=== PATIENT | male | born 1985 | race Caucasian/White ===

== ENCOUNTER 2018-01-28 17:25 | Observation (INO) | payer OTHER ==
[~2018-01-28] VITALS: Ht 182.9 cm; Wt 104.5 kg
[2018-01-28 17:29] VITALS: BP 160/91; PULSE 92; RESP 18; TEMP 98.6; O2SAT 99
[2018-01-28 17:41] VITALS: BP 159/104; PULSE 94; RESP 18; O2SAT 98
--- NOTE | 2018-01-28 17:44 | PD ---
HPI Chief Complaint: Chest Pain Time Seen by Provider: 17:43 Travel History International Travel<30 days: No Contact w/Intl Traveler<30days: No Traveled to known affect area: No History of Present Illness HPI 32-year-old male came to the emergency room with history of substernal chest tightness that has been going on since yesterday. It has been continuous. No aggravating or relieving factors identified. No radiation of pain. Patient was concerned since it did not get better and hence decided to come in. Vital signs are stable. He has history of hypertension and has been noncompliant with his medications as per him. He is not a smoker. Has never had these symptoms in the past. Never had a coronary artery disease workup. His grandfather had VA at the age of 40s. Patient was concerned from cardiac standpoint and hence came to the emergency room. No history of DVT or PE. [facility] Past Medical History Narrative Medical List of his past medical, surgical, social and family history is reviewed from the nursing note. Social History Tobacco Use: No Allergies-Medications (Allergen,Severity, Reaction): Coded Allergies: No Known Allergies (Unverified , 01/28/18) Comments No known drug allergies. Reported Meds & Prescriptions Reported Meds & Active Scripts Active Reported Naproxen 250 Mg Tab 250 Mg PO BID Voltaren (Diclofenac Sodium) 1 % Gel..gram. Omeprazole 20 Mg Tab 20 Mg PO DAILY Wellbutrin SR 12 HR (Bupropion HCl) 100 Mg Tab 100 Mg PO Q12HR Diltiazem CD 24 HR 120 Mg Caper 120 Mg PO DAILY Narrative Medication List of his home medications reviewed from the nursing note. Review of Systems Except as stated in HPI: all other systems reviewed are Neg Cardiovascular: Positive: Chest Pain or Discomfort Physical Exam Narrative GENERAL: Awake, alert, no obvious distress SKIN: Focused skin assessment warm/dry. Patient has a lump on the back of his neck at C7-T1 area. This is nontender and the overlying skin appears to be normal. HEAD: Atraumatic. Normocephalic. EYES: Pupils equal and round. No scleral icterus. No injection or drainage. ENT: No nasal bleeding or discharge. Mucous membranes pink and moist. NECK: Trachea midline. No JVD. CARDIOVASCULAR: Regular rate and rhythm. No murmur appreciated. RESPIRATORY: No accessory muscle use. Clear to auscultation. Breath sounds equal bilaterally. GASTROINTESTINAL: Abdomen soft, non-tender, nondistended. Hepatic and splenic margins not palpable. MUSCULOSKELETAL: No obvious deformities. No clubbing. No cyanosis. No edema. NEUROLOGICAL: Awake and alert. No obvious cranial nerve deficits. Motor grossly within normal limits. Normal speech. PSYCHIATRIC: Appropriate mood and affect; insight and judgment normal. Data Data Last Documented VS Vital Signs Date Time Temp Pulse Resp B/P (MAP) Pulse Ox O2 Delivery O2 Flow Rate FiO2 01/28/18 17:41 94 18 159/104 (122) 98 Room Air 01/28/18 17:29 98.6 Orders Orders Basic Metabolic Panel (Bmp) (01/28/18 18:10) Complete Blood Count With Diff (01/28/18 18:10) Magnesium (Mg) (01/28/18 18:10) Prothrombin Time / Inr (Pt) (01/28/18 18:10) Troponin I (01/28/18 18:10) Chest, Single Ap (01/28/18 18:10) Ecg Monitoring (01/28/18 18:10) Bilateral Bp Monitoring (01/28/18 18:10) Iv Access Insert/Monitor (01/28/18 18:10) Oximetry (01/28/18 18:10) Oxygen Administration (01/28/18 18:10) Aspirin Chew (Aspirin Chew) (01/28/18 18:15) Sodium Chloride 0.9% Flush (Ns Flush) (01/28/18 18:15) Admit Order (Ed Use Only) (01/28/18 18:54) Place In Observation (01/28/18 18:54) Activity Bed Rest With Brp (01/28/18 18:54) Vital Signs (Adult) Q4H (01/28/18 18:54) Cardiac Rhythm .As Directed (01/28/18 18:54) Notify Dr: Other .PRN (01/28/18 18:54) Notify Parameters (01/28/18 18:54) Resp Oxygen Nasal Cannula (01/28/18 ) Diet Heart Healthy (01/28/18 Dinner) Ckmb (Isoenzyme) Profile (01/28/18 18:54) Ckmb (Isoenzyme) Profile (01/28/18 21:54) Troponin I (01/28/18 18:54) Troponin I (01/28/18 21:54) Electrocardiogram (01/28/18 18:54) Electrocardiogram (01/28/18 21:54) ^ Obtain (01/28/18 18:54) Sodium Chloride 0.9% Flush (Ns Flush) (01/28/18 19:00) Sodium Chloride 0.9% Flush (Ns Flush) (01/28/18 21:00) Acetaminophen (Tylenol) (01/28/18 19:00) Ondansetron Inj (Zofran Inj) (01/28/18 19:00) Clinical Specialist Vascular / Telemetry LIA.Q8H (01/28/18 18:54) Labs Laboratory Tests Test 01/28/18 18:15 White Blood Count 10.1 TH/MM3 Red Blood Count 5.64 MIL/MM3 Hemoglobin 16.7 GM/DL Hematocrit 47.7 % Mean Corpuscular Volume 84.5 FL Mean Corpuscular Hemoglobin 29.6 PG Mean Corpuscular Hemoglobin Concent 35.0 % Red Cell Distribution Width 13.9 % Platelet Count 220 TH/MM3 Mean Platelet Volume 8.4 FL Neutrophils (%) (Auto) 67.6 % Lymphocytes (%) (Auto) 21.5 % Monocytes (%) (Auto) 7.5 % Eosinophils (%) (Auto) 2.7 % Basophils (%) (Auto) 0.7 % Neutrophils # (Auto) 6.9 TH/MM3 Lymphocytes # (Auto) 2.2 TH/MM3 Monocytes # (Auto) 0.8 TH/MM3 Eosinophils # (Auto) 0.3 TH/MM3 Basophils # (Auto) 0.1 TH/MM3 CBC Comment DIFF FINAL Differential Comment Prothrombin Time 10.7 SEC Prothromb Time International Ratio 1.1 RATIO Blood Urea Nitrogen 10 MG/DL Creatinine 1.08 MG/DL Random Glucose 93 MG/DL Calcium Level 9.1 MG/DL Magnesium Level 1.7 MG/DL Sodium Level 138 MEQ/L Potassium Level 4.0 MEQ/L Chloride Level 102 MEQ/L Carbon Dioxide Level 29.9 MEQ/L Anion Gap 6 MEQ/L Estimat Glomerular Filtration Rate 80 ML/MIN Troponin I LESS THAN 0.02 NG/ML MDM Medical Decision Making Medical Screen Exam Complete: Yes Emergency Medical Condition: Yes Medical Record Reviewed: Yes Interpretation(s) Twelve-lead EKG was reviewed by me. Normal sinus rhythm, normal axis, nonspecific ST-T wave changes. Heart rate of 90 bpm. Differential Diagnosis ACS, non-STEMI, nonspecific chest Narrative Course 6:23 PM awaiting for blood test result. Patient has been given 2 baby aspirins. Given his couple risk factors I have decided to admit him to the chest pain center if all the test results are negative to rule out ACS. Procedures EKG Prior to Arrival: No Diagnosis Primary Impression: Chest pain Qualified Codes: R07.9 - Chest pain, unspecified Admitting Information Admitting Physician Requests: Observation Anusha Cao MD Jan 28, 2018 17:44
[2018-01-28] MEDS ORDERED: DILT120C50 PO (17:48)
[2018-01-28] MEDS ORDERED: NAPR250T4 PO (17:48)
[2018-01-28] MEDS ORDERED: VOLT1GEL16 (17:48)
[2018-01-28] MEDS ORDERED: BUPR100CR PO (17:48)
[2018-01-28] MEDS ORDERED: OMEP20TA93 PO (17:48)
[2018-01-28] MEDS ORDERED: ASPIRIN 81 MG CHEW TAB PO ONE (18:15)
[2018-01-28] MEDS ORDERED: SODIUM CHLORIDE 0.9% FLUSH 10 ML FLUSH IVF PRN (18:15)
[2018-01-28 18:36] LABS: AUTOMATED NEUTROPHIL # 6.9 TH/MM3 (1.8-7.7); BASOPHIL # 0.1 TH/MM3 (0-0.2); BASOPHIL % 0.7 % (0.0-2.0); EOSINOPHIL # 0.3 TH/MM3 (0-0.4); EOSINOPHIL % 2.7 % (0.0-4.0); HEMATOCRIT 47.7 % (39.0-51.0); HEMOGLOBIN 16.7 GM/DL (13.0-17.0); LYMPH % 21.5 % (9.0-44.0); LYMPHOCYTE # 2.2 TH/MM3 (1.0-4.8); MEAN CELL VOLUME 84.5 FL (80.0-100.0); MEAN CORPUSCULAR HEMOGLOBIN 29.6 PG (27.0-34.0); MEAN PLATELET VOLUME 8.4 FL (7.0-11.0); MONO % 7.5 % (0.0-8.0); MONOCYTE # 0.8 TH/MM3 (0-0.9); NEUT % 67.6 % (16.0-70.0); PLATELET COUNT 220 TH/MM3 (150-450); RED BLOOD COUNT 5.64 MIL/MM3 (4.50-5.90); RED CELL DISTRIBUTION WIDTH 13.9 % (11.6-17.2); WHITE BLOOD COUNT 10.1 TH/MM3 (4.0-11.0)
[2018-01-28 18:46] LABS: INTERNATIONAL NORMALIZED RATIO 1.1 RATIO; PROTHROMBIN TIME - PATIENT 10.7 SEC (9.8-11.6)
[2018-01-28 18:49] LABS: TROPONIN I LESS THAN 0.02 NG/ML (0.02-0.05)
[2018-01-28 18:51] LABS: BICARBONATE 29.9 MEQ/L (21.0-32.0); BLOOD UREA NITROGEN 10 MG/DL (7-18); CALCIUM 9.1 MG/DL (8.5-10.1); CHLORIDE 102 MEQ/L (98-107); CREATININE 1.08 MG/DL (0.60-1.30); GLOMERULAR FILTRATION RATE 80 ML/MIN (>89); GLUCOSE,RANDOM 93 MG/DL (74-106); MAGNESIUM 1.7 MG/DL (1.5-2.5); SODIUM (NA) 138 MEQ/L (136-145)
--- NOTE | 2018-01-28 18:51 | RADRPT ---
EXAM DATE/TIME: 01/28/2018 18:12 [place] COMPARISON: No previous studies available for comparison. INDICATIONS : Chest Pain MEDICAL HISTORY : Hypertension. SURGICAL HISTORY : None. ENCOUNTER: Initial ACUITY: 1 day PAIN SCORE: 0/10 LOCATION: chest FINDINGS: Trace left base atelectasis. Right lung clear. No pleural effusion or pneumothorax. Normal heart size. CONCLUSION: Minimal left base atelectasis. Otherwise negative. Virgil Agustin MD on January 28, 2018 at 18:48 Board Certified Radiologist. This report was verified electronically.
[2018-01-28] MEDS ORDERED: ONDANSETRON HCL 4 MG/2 ML VIAL IV PUSH PRN (19:00)
[2018-01-28] MEDS ORDERED: SODIUM CHLORIDE 0.9% FLUSH 10 ML FLUSH IV FLUSH PRN (19:00)
[2018-01-28] MEDS ORDERED: ACETAMINOPHEN 500 MG CPLT PO PRN (19:00)
[2018-01-28 19:15] VITALS: BP 142/83; PULSE 90; RESP 16; O2SAT 95
[2018-01-28] MEDS ORDERED: SODIUM CHLORIDE 0.9% FLUSH 10 ML FLUSH IV FLUSH SCH (21:00)
[2018-01-28 21:30] VITALS: BP 136/80; PULSE 87; RESP 17; TEMP 98.8; O2SAT 97
[2018-01-28 23:30] LABS: TROPONIN I LESS THAN 0.02 NG/ML (0.02-0.05)
[2018-01-29 01:04] LABS: TROPONIN I LESS THAN 0.02 NG/ML (0.02-0.05)
[2018-01-29 01:54] VITALS: BP 133/81; PULSE 76; RESP 16; TEMP 97.7; O2SAT 97
[2018-01-29 04:35] VITALS: BP 129/81; PULSE 78; RESP 17; TEMP 97.9; O2SAT 97
[2018-01-29 07:13] VITALS: BP 136/89; PULSE 85; RESP 16; TEMP 98.7; O2SAT 98
--- NOTE | 2018-01-29 09:41 | HHI.HP ---
HPI Primary Care Physician [facility] Chief Complaint Chest pain History of Present Illness This is a 32-year-old male that presents to ED via private vehicle with a complaint of developing chest tightness Monday evening. He fell asleep with the discomfort and when he woke up yesterday was still present. The discomfort is still there in the center of his chest but not as intense. He was diaphoretic with it Monday but not yesterday. He is short of breath with the symptoms yesterday. No nausea. Nothing to worsen or improve it. Cannot recall prior cardiac workup. Review of Systems General: Patient denies fevers, chills, and recent travel. HEENT: Patient denies headache, sore throat, difficulty swallowing. Cardiovascular: Has the chest discomfort as mentioned above. Denies sensation of heart beating rapidly or irregularly. No syncope. Diaphoretic Monday. Respiratory: He was short of breath. Denies inspirational chest discomfort. Denies coughing wheezing or hemoptysis. GI: Patient denies nausea, vomiting, diarrhea, abdominal pain, bloody stools. Musculoskeletal: Chronic neck pain. Patient denies joint pain or edema. Denies calf pain or edema. Neurovascular: Patient denies numbness, tingling, weakness in extremities. Denies headache. Endocrine: Denies polyuria and polydipsia. Hematologic: Denies easy bruising. Skin: Denies rash or itching. Past Family Social History Allergies: Coded Allergies: No Known Allergies (Unverified , 01/28/18) Past Medical History Hypertension, GERD, chronic neck pain, anxiety. Alcohol abuse. Denies hyperlipidemia, diabetes, and CAD. Past Surgical History Denies. Reported Medications Reported Meds & Active Scripts Active Reported Naproxen 250 Mg Tab 250 Mg PO BID Voltaren (Diclofenac Sodium) 1 % Gel..gram. Omeprazole 20 Mg Tab 20 Mg PO DAILY Wellbutrin SR 12 HR (Bupropion HCl) 100 Mg Tab 100 Mg PO Q12HR Diltiazem CD 24 HR 120 Mg Caper 120 Mg PO DAILY Active Ordered Medications Current Medications Medications (Trade) Dose Ordered Sig/Edu Route Start Time Stop Time Status Last Admin (NS Flush) 2 ml UNSCH PRN IVF 01/28/18 18:15 (NS Flush) 2 ml UNSCH PRN IV FLUSH 01/28/18 19:00 (NS Flush) 2 ml BID IV FLUSH 01/28/18 21:00 (Tylenol) 500 mg Q4H PRN PO 01/28/18 19:00 (Zofran Inj) 4 mg Q6H PRN IV PUSH 01/28/18 19:00 Family History Denies family history of CAD. Social History Non-smoker. Drinks on average one half left fifth of bourbon 4-5 times a week. Physical Exam Vital Signs Vital Signs Date Time Temp Pulse Resp B/P (MAP) Pulse Ox O2 Delivery O2 Flow Rate FiO2 01/29/18 07:13 98.7 85 16 136/89 (105) 98 01/29/18 04:35 97.9 78 17 129/81 (97) 97 01/29/18 01:54 97.7 76 16 133/81 (98) 97 01/28/18 21:30 98.8 87 17 136/80 (98) 97 01/28/18 20:22 01/28/18 19:15 90 16 142/83 (102) 95 Room Air 01/28/18 17:41 94 18 159/104 (122) 98 Room Air 01/28/18 17:29 98.6 92 18 160/91 (114) 99 Physical Exam GENERAL: This is a well-nourished, well-developed patient, in no apparent distress. Patient speaks in clear complete sentences. Patient is pleasant. HEENT: Head is atraumatic and normocephalic. Neck is supple without lymphadenopathy and trachea is midline. No JVD or carotid bruits. CARDIOVASCULAR: Regular rate and rhythm without murmurs, gallops, or rubs. RESPIRATORY: Clear to auscultation. Breath sounds equal bilaterally. No wheezes , rales, or rhonchi. Chest wall is nontender. No use of accessory muscles. GASTROINTESTINAL: Abdomen is nontender, nondistended. Abdomen soft. No obvious pulsatile mass or bruit. No CVA tenderness. Strong femoral pulses bilaterally. Normal bowel sounds in all quadrants. MUSCULOSKELETAL: Patient is moving upper and lower extremities freely. No calf tenderness or edema, no Homans sign. Strong pulses in upper and lower extremities. NEUROLOGICAL: Patient is alert and oriented. Cranial nerves 2-12 are grossly intact. No focal deficits and speech is clear. SKIN: No rash and turgor is normal. Laboratory Laboratory Tests Test 01/28/18 18:15 01/28/18 22:15 01/29/18 00:15 White Blood Count 10.1 Red Blood Count 5.64 Hemoglobin 16.7 Hematocrit 47.7 Mean Corpuscular Volume 84.5 Mean Corpuscular Hemoglobin 29.6 Mean Corpuscular Hemoglobin Concent 35.0 Red Cell Distribution Width 13.9 Platelet Count 220 Mean Platelet Volume 8.4 Neutrophils (%) (Auto) 67.6 Lymphocytes (%) (Auto) 21.5 Monocytes (%) (Auto) 7.5 Eosinophils (%) (Auto) 2.7 Basophils (%) (Auto) 0.7 Neutrophils # (Auto) 6.9 Lymphocytes # (Auto) 2.2 Monocytes # (Auto) 0.8 Eosinophils # (Auto) 0.3 Basophils # (Auto) 0.1 CBC Comment DIFF FINAL Differential Comment Prothrombin Time 10.7 Prothromb Time International Ratio 1.1 Blood Urea Nitrogen 10 Creatinine 1.08 Random Glucose 93 Calcium Level 9.1 Magnesium Level 1.7 Sodium Level 138 Potassium Level 4.0 Chloride Level 102 Carbon Dioxide Level 29.9 Anion Gap 6 Estimat Glomerular Filtration Rate 80 Troponin I LESS THAN 0.02 LESS THAN 0.02 LESS THAN 0.02 Total Creatine Kinase 367 393 Creatine Kinase MB 12.7 Creatine Kinase MB % 3.5 Result Diagram: 01/28/18181401/28/181814 Imaging Last 48 hours Impressions Chest X-Ray 01/28/181809 Signed Impressions: Service Date/Time: Sunday, January 28, 2018 18:12 - CONCLUSION: Minimal left base atelectasis. Otherwise negative. Virgil Agustin MD Course EKGs are sinus rhythm without significant ST segment depressions or elevations. Caprini VTE Risk Assessment Caprini VTE Risk Assessment: No/Low Risk (score <= 1) Caprini Risk Assessment Model Point Value = 1 Point Value = 2 Point Value = 3 Point Value = 5 Age 41-60 Minor surgery BMI > 25 kg/m2 Swollen legs Varicose veins or History of unexplained or recurrent spontaneous Oral contraceptives or hormone replacement Sepsis (< 1 month) Serious lung disease, including pneumonia (< 1 month) Abnormal pulmonary function Acute myocardial infarction Congestive heart failure (< 1 month) History of inflammatory bowel disease Medical patient at bed rest Age 61-74 Arthroscopic surgery Major open surgery (> 45 min) Laparoscopic surgery (> 45 min) Malignancy Confined to bed (> 72 hours) Immobilizing plaster cast Central venous access Age >= 75 History of VTE Family history of VTE Factor V Leiden Prothrombin [id number] Lupus anticoagulant Anticardiolipin antibodies Elevated serum homocysteine Heparin-induced thrombocytopenia Other congenital or acquired thrombophilia Stroke (< 1 month) Elective arthroplasty Hip, pelvis, or leg fracture Acute spinal cord injury (< 1 month) Prophylaxis Regimen Total Risk Factor Score Risk Level Prophylaxis Regimen 0-1 Low Early ambulation 2 Moderate Order ONE of the following: *Sequential Compression Device (SCD) *Heparin 5000 units SQ BID 3-4 Higher Order ONE of the following medications: *Heparin 5000 units SQ TID *Enoxaparin/Lovenox 40 mg SQ daily (WT < 150 kg, CrCl > 30 mL/min) *Enoxaparin/Lovenox 30 mg SQ daily (WT < 150 kg, CrCl > 10-29 mL/min) *Enoxaparin/Lovenox 30 mg SQ BID (WT < 150 kg, CrCl > 30 mL/min) AND/OR *Sequential Compression Device (SCD) 5 or more Highest Order ONE of the following medications: *Heparin 5000 units SQ TID (Preferred with Epidurals) *Enoxaparin/Lovenox 40 mg SQ daily (WT < 150 kg, CrCl > 30 mL/min) *Enoxaparin/Lovenox 30 mg SQ daily (WT < 150 kg, CrCl > 10-29 mL/min) *Enoxaparin/Lovenox 30 mg SQ BID (WT < 150 kg, CrCl > 30 mL/min) AND *Sequential Compression Device (SCD) Assessment and Plan Assessment and Plan * Chest pain: Patient has had serial cardiac enzymes and EKGs for ruling out purposes. He was seen by Dr. Marco A Saleem of cardiology in the chest pain center. He will undergo a Darren protocol ETT and be discharge if this is nonischemic. Follow-up with PCP. Return to ED for interval issues. * Hypertension: Resume medication. * GERD: Continue medication. * Anxiety: Continue medication. * Alcohol abuse: Patient has been counseled importance of reducing his alcohol intake. Patient is stable at this time. He is agreeable to this plan. Jossue Castillo Jan 29, 2018 09:41
--- NOTE | 2018-01-29 09:44 | HHI.DCPOC ---
Discharge Care Plan Diagnosis: (1) Chest pain (2) Hypertension (3) GERD (gastroesophageal reflux disease) (4) Anxiety (5) Chronic neck pain (6) Alcohol abuse Goals to Promote Your Health * To prevent worsening of your condition and complications * To maintain your health at the optimal level Directions to Meet Your Goals Take your medications as prescribed Follow your dietary instruction Follow activity as directed Keep your appointments as scheduled Take your immunizations and boosters as scheduled If your symptoms worsen call your PCP, if no PCP go to Urgent Care Center or Emergency Room Smoking is Dangerous to Your Health. Avoid second hand smoke Call the 24-hour hour crisis hotline for domestic abuse at Jossue Castillo Jan 29, 2018 09:44
--- NOTE | 2018-01-29 15:41 | EKG ---
Date Performed: 01/28/2018 Time Performed: 22:13:18 PTAGE: 32 years EKG: Sinus rhythm NONSPECIFIC T-WAVE ABNORMALITY BORDERLINE ECG PREVIOUSSince PREVIOUS TRACING , no significant change noted DOCTOR: Marco A Saleem Interpretating Date/Time 01/29/2018 15:40:15
--- NOTE | 2018-01-29 15:41 | EKG ---
Date Performed: 01/28/2018 Time Performed: 17:46:12 PTAGE: 32 years EKG: Sinus rhythm NONSPECIFIC T-WAVE ABNORMALITY BORDERLINE ECG INTERPRETATION BASED ON A DEFAULT AGE OF 41 YEARS NO PREVIOUS TRACING DOCTOR: Marco A Saleem Interpretating Date/Time 01/29/2018 15:40:44
--- NOTE | 2018-01-29 15:44 | TR ---
Date Performed: 01/29/2018 Time Performed: 09:03:47 DOCTOR: Marco A Saleem DRUG LIST: CLINICAL HISTORY: CHEST PAIN REASON FOR TEST: REASON FOR ENDING: OBSERVATION: CONCLUSION: NAVNEET PROTOCOL. NO CP. TEST STOPPED AFTER EXCEEDING GOAL HR SECONDARY TO LEG FATIGUE AND SOB.Maximum CK=184 % Max HR Achieved=90.0% Maximum GQ=106/84 Total Exercise Time=9:14 COMMENTS: \ett
== END 2018-01-29 11:36 | disposition home or self-care (01) ==
LOC: NEPC 17:25 → NEDA 18:56 → NEPGCP 20:24
DX: R07.89 Other chest pain (principal); I10 Essential (primary) hypertension; K21.9 Gastro-esophageal reflux disease without esophagitis; F41.9 Anxiety disorder, unspecified; G89.29 Other chronic pain; M54.2 Cervicalgia; F10.10 Alcohol abuse, uncomplicated; Z91.14 Patient's other noncompliance with medication regimen
CPT/HCPCS: 71045; 80048; 82550; 82552; 83735; 84484; 85025; 85610; 93005; 93017; 99285; G0378